=== PATIENT | female | born 1985 | race Caucasian/White ===

== ENCOUNTER 2024-03-26 05:18 | Emergency (ER) | payer OTHER ==
[2024-03-26] MEDS ORDERED: ONDANSETRON 4 MG/2 ML VIAL ONE (05:33)
[2024-03-26] MEDS ORDERED: ACETAMINOPHEN INJECTION 100 ML ONE (05:33)
[2024-03-26] MEDS ORDERED: FAMOTIDINE 20 MG/50 ML IVPB 20 MG/50 ML MG IVPB ONE (05:33)
[2024-03-26] MEDS: SODIUM CHLORIDE 1,000 ML IV STA (05:41)
[2024-03-26] MEDS: ONDANSETRON 4 MG/2 ML VIAL IVPB ONE (05:41)
[2024-03-26] MEDS: FAMOTIDINE 20 MG/50 ML IVPB 20 MG/50 ML MG IVPB ONE (05:41)
[2024-03-26] MEDS: ACETAMINOPHEN 1000 MG/100 ML BAG IVPB ONE (05:44)
[2024-03-26 05:56] VITALS: BP 112/65; PULSE 112; RESP 16; TEMP 97.5; BMI 21.4
[2024-03-26 07:45] LABS: HEMATOCRIT 49.2 % (32.4-45.2); HEMOGLOBIN 16.6 GM/dL (10.7-15.3); MCH 31.1 pg (25.7-33.7); MCHC 33.8 g/dl (32.0-36.0); MEAN CELL VOLUME 92.3 fl (80-96); MEAN PLT VOLUME 8.2 fl (7.5-11.1); PLATELET COUNT 231 10^3/uL (134-434); RBC 5.34 M/mm3 (3.60-5.2); RDW 12.9 % (11.6-15.6); WHITE BLOOD COUNT 11.9 K/mm3 (4.0-10.0)
[2024-03-26 08:12] LABS: EPI CELLS >36 /uL (0-25.1); HYALINE CASTS 11 /uL (0-3.1); URINE APPEARANCE CLOUDY; URINE BACTERIA 362 /uL (0-1359); URINE BILIRUBIN 2+ (NEGATIVE); URINE COLOR DK YELLOW; URINE GLUCOSE (UA) NEGATIVE (NEGATIVE); URINE KETONE 1+ (NEGATIVE); URINE LEUK ESTERASE TRACE (NEGATIVE); URINE NITRITE NEGATIVE (NEGATIVE); URINE PROTEIN 2+ (NEGATIVE); URINE WBC 71 /uL (0-25.8)
[2024-03-26 09:24] LABS: ALBUMIN 4.7 g/dl (3.4-5.0); CALCIUM 10.3 mg/dL (8.5-10.1); CREATININE 1.7 mg/dL (0.55-1.3); POTASSIUM 4.7 mmol/L (3.5-5.1); TOT PROT 8.8 g/dl (6.4-8.2)
[2024-03-26 09:45] LABS: ANISOCYTOSIS 0; MACROCYTOSIS 0
[2024-03-26 10:25] LABS: URINE RBC 74 /uL (0-23.9)
== END 2024-03-26 10:52 | disposition home or self-care (01) ==
LOC: FER 05:18
PROC: 3E033GC Introduction of Other Therapeutic Substance into Peripheral Vein, Percutaneous Approach (ICD-10-PCS; principal; 2024-03-26)
PROC: 3E033NZ Introduction of Analgesics, Hypnotics, Sedatives into Peripheral Vein, Percutaneous Approach (ICD-10-PCS; 2024-03-26)
PROC: 3E033GC Introduction of Other Therapeutic Substance into Peripheral Vein, Percutaneous Approach (ICD-10-PCS; 2024-03-26)
DX: R11.2 Nausea with vomiting, unspecified (principal); B34.9 Viral infection, unspecified; R19.7 Diarrhea, unspecified; R10.30 Lower abdominal pain, unspecified; K92.1 Melena
CPT/HCPCS: 36415; 80053; 81003; 81025; 85025; 99284-25; J0131